=== PATIENT | female | born 1950 | race Caucasian/White ===

== ENCOUNTER 2017-08-21 20:28 | Observation (INO) | payer MEDICARE, OTHER ==
--- OUTSIDE RECORDS SUMMARY | 2017-08-21 20:31 | XMS | Clinical Summary ---
:1950 Author Organization [facility] Address [address] [place] [address] Phone Care Team Providers Name Role Phone , Primary Care Provider Unavailable Allergies Not on File Current Medications Not on file Active Problems Not on file Social History Tobacco Use Types Packs/Day Years Used Date Never Assessed Sex Assigned at Date Recorded Not on file Last Filed Vital Signs Not on file Plan of Treatment Not on file Results Not on filefrom Last 3 Months
[2017-08-21] MEDS ORDERED: Lidocaine Viscous Sol 2% 15 ml UD Cup ONE (20:50)
[2017-08-21] MEDS ORDERED: Milk Of Magnesia 30 ML UDCUP ONE (20:50)
[2017-08-21 21:08] LABS: ALT (SGPT) 14 U/L (8-55); AST (SGOT) 17 U/L (5-34); Alkaline Phosphatase 117 U/L (40-150); Anion Gap 16 mmol/L (10-20); BUN (Urea Nitrogen) 22 mg/dL (9.8-20.1); Bilirubin, Total 0.2 mg/dL (0.2-1.2); Calc. Creatinine Clearance 0 mL/min (70-130); Calcium 9.3 mg/dL (7.8-10.44); Carbon Dioxide 24 mmol/L (23-31); Chloride 100 mmol/L (98-107); Estimated GFR-MDRD 41; Globulin 2.9 g/dL (2.4-3.5); Protein, Total 7.1 g/dL (6.0-8.3)
[2017-08-21 21:10] LABS: Troponin I Less than 0.010 ng/mL (< 0.028)
[2017-08-21 21:15] LABS: Hematocrit 37.8 % (36.0-47.0); Mean Platelet Volume 7.6 fL (7.4-10.4); Neutrophil 35 % (42-75); Red Blood Cell (RBC) Count 4.01 mill/uL (4.20-5.40); White Blood Cell (WBC) Count 8.3 thou/uL (4.8-10.8)
--- NOTE | 2017-08-21 21:32 | RAD ---
PORTABLE AP CHEST X-RAY 08/21/17 HISTORY: Left upper chest pain. Began 20 minutes prior to arrival. COMPARISON: 04/04/17. There is an irregular nodular opacity which has developed at the right lung base. Linear scarring ri ght mid lung zone is seen, and there is a ill-defined nodular density also seen in this region. Ther e is linear scarring versus atelectasis at the left lung base similar to prior study. The cardiac silhouette and pulmonary vasculature are within normal limits. Metallic recording device again overlies the left lung base. IMPRESSION: Linear areas of scarring in the right mid lung zone and at the left lung base similar to prior study . There is a nodular density seen adjacent to the area of linear scarring as well as irregular nodul ar density seen at the right lung base. CT thorax is recommended for further evaluation. POS: [facility]
[2017-08-21] MEDS ORDERED: Nitroglycerin 0.4 MG TAB (25 Tab Bottle) ONE (21:54)
[2017-08-21] MEDS ORDERED: Ondansetron HCl/PF 4 MG/2 ML Vial IVP PRN (23:06)
[2017-08-21] MEDS ORDERED: Acetaminophen 325 MG TAB PO PRN (23:06)
[2017-08-21] MEDS ORDERED: HYDROcodone/Acetaminophen 5/325 mg Tablet PO PRN ×2 (23:06)
[2017-08-21] MEDS ORDERED: Ondansetron ODT 4 MG TAB SL PRN (23:06)
[2017-08-21 23:17] VITALS: BMI 22.2
[2017-08-22 00:01] LABS: Dilantin 15.5 ug/mL (10.0-20.0); Magnesium 2.1 mg/dL (1.6-2.6); Phosphorus 3.7 mg/dL (2.3-4.7)
[2017-08-22 00:27] LABS: Troponin I Less than 0.010 ng/mL (< 0.028)
[2017-08-22] MEDS ORDERED: Senokot 8.6 MG TAB PO PRN (01:22)
[2017-08-22] MEDS ORDERED: Nitroglycerin 0.4 MG TAB (25 Tab Bottle) PO PRN (01:22)
[2017-08-22] MEDS ORDERED: Ondansetron ODT 4 MG TAB PO PRN (01:22)
[2017-08-22] MEDS ORDERED: Eucerin (Mineral Oil/Petrolatum,White) 30 gm Jar TOP PRN (01:22)
[2017-08-22] MEDS ORDERED: Bisacodyl 10 MG SUPP PR PRN (01:22)
[2017-08-22] MEDS ORDERED: Cepastat Lozenges 1 LOZ PO PRN (01:22)
[2017-08-22] MEDS ORDERED: Diabetic Tussin 200 MG/10 ML UDCUP PO PRN (01:22)
[2017-08-22] MEDS ORDERED: Acetaminophen 325 MG TAB PO PRN (01:22)
[2017-08-22] MEDS ORDERED: Ondansetron HCl/PF 4 MG/2 ML Vial IVP PRN (01:22)
[2017-08-22] MEDS ORDERED: Levalbuterol HCl 0.63 MG/3 ML NEB NEB PRN (01:25)
[2017-08-22] MEDS ORDERED: PROVENTIL INHALER 6.7 G (200 INHALATIONS) INH PRN (01:25)
--- NOTE | 2017-08-22 02:01 | HP ---
DATE OF ADMISSION: 08/21/2017 Please note that the patient was seen and examined on 08/21/2017. PRIMARY CARE PHYSICIAN: Dr. Farrell PRIMARY RASPBERRY CHECKER: Dr. Roe Cain. CHIEF COMPLAINT: Chest discomfort. HISTORY OF PRESENT ILLNESS: 1. The patient is a 67-year-old female with coronary artery disease, frequent PVCs, status post loo p recorder. 2. Hypertension and TIAs, presented to the emergency room with chest discomfort that started earlie r today while she was working on her computer. It was left-sided without any radiation. It lasted for approximately 20 minutes or so. She felt nauseous; however, denies any vomiting. It was dull i n nature/pinching per patient report. It was 3/10 without any diaphoresis, syncope or dizziness. S he had several other episodes which were short lasting. She denies recent immobilization, travel, f ever, chills or cough. She has a history of cholecystectomy in the past. She is currently on omepr azole. However, has heartburn on and off. In the emergency room, her initial vital signs showed temperature 98, respiration of 19, pulse rate of 86, blood pressure 142/72 with O2 saturation 98% on room air. She received GI cocktail, aspirin and sublingual nitroglycerin in the emergency room. PAST MEDICAL HISTORY: 1. Frequent PVCs, status post loop recorder. 2. Left ear deafness. 3. Gastroesophageal reflux disease. 4. Peripheral neuropathy. 5. Transient ischemic attacks. 6. Meningioma. 7. Asthma. 8. Benign positional vertigo. 9. Cardiac catheterization in 2008 that showed mild coronary artery disease. PAST SURGICAL HISTORY: 1. Cardiac catheterization in 2008. 2. Loop recorder in 2015. 3. Hysterectomy. 4. Bladder surgery. 5. Thyroid surgery. 6. Bronchoscopy. 7. Bladder repair. ALLERGIES: Patient is allergic to KEFLEX and IODINE. CURRENT HOME MEDICATIONS: 1. Albuterol inhaler as needed, aspirin 81 mg at bedtime. 2. Aggrenox 1 capsule b.i.d. 3. Lipitor 10 mg at bedtime. 4. Vitamin B12. 5. Vitamin D3 daily. 6. Dilantin as directed. 7. Singular 10 mg at bedtime. 8. Synthroid 125 mcg daily. 9. Xopenex 0.63 mg every 8 hourly as needed. 10. Diovan 80 mg q.a.m. Please note that this was recently started; however, the patient has not b een taking due to blood pressure on the lower side. 11. Verapamil 100 mg b.i.d. SOCIAL HISTORY: Patient currently lives at home with her family. She denies any smoking, alcohol o r drug use. FAMILY HISTORY: Negative for premature coronary artery disease. Father had coronary artery disease and triple bypass surgery. Mother had a stroke. REVIEW OF SYSTEMS: The following complete review of systems was negative, unless otherwise mentione d in the HPI or below: Constitutional: Weight loss or gain, ability to conduct usual activities. Skin: Rash, itching. Eyes: Double vision, pain. ENT/Mouth: Nose bleeding, neck stiffness, pain, tenderness. Cardiovascular: Palpitations, dyspnea on exertion, orthopnea. Respiratory: Shortnes s of breath, wheezing, cough, hemoptysis, fever or night sweats. Gastrointestinal: Poor appetite, abdominal pain, heartburn, nausea, vomiting, constipation, or diarrhea. Genitourinary: Urgency, fr equency, dysuria, nocturia. Musculoskeletal: Pain, swelling. Neurologic/Psychiatric: Anxiety, de pression. Allergy/Immunologic: Skin rash, bleeding tendency. PHYSICAL EXAMINATION: VITAL SIGNS: As discussed above. GENERAL: A 67-year-old female in no apparent distress. Denies any chest discomfort at this time. HEENT: Head atraumatic, normocephalic, sclerae anicteric. Moist mucous membranes. No oral lesion. NECK: Supple, no JVD appreciated. No carotid bruit. LUNGS: Clear to auscultation bilaterally. No wheezing or rales. HEART: S1, S2 present. Regular rate and rhythm. No significant rubs or gallops appreciated. ABDOMEN: Soft, nontender, bowel sounds present. EXTREMITIES: No edema or calf tenderness. NEUROLOGIC: Grossly nonfocal, moves all four extremities. PSYCHIATRY: Alert, awake, oriented x3. SKIN: Warm and dry. LYMPH NODES: No palpable lymph nodes in the neck. PERIPHERAL VASCULAR: Radial pulses palpable bilaterally. MUSCULOSKELETAL: No joint swelling or tenderness. LABORATORY FINDINGS: 1. Creatinine was 1.3 with BUN 22, sodium of 135. 2. CBC showed WBC 8.3 with hemoglobin 13.3. 3. Dilantin level was normal. 4. Cardiac enzymes were normal. EKG by my review showed sinus rhythm with RSR prime pattern in V1. There were no significant ST-T wave changes. 5. Chest x-ray by my review was negative for edema. CT thorax was recommended due to irregular nod ular density at the right lung base. The right mid lung zone and the left lung base are similar to the prior study. Please note that patient recently had a CT scan of the chest at [facility]. IMPRESSION: 1. Chest discomfort, rule out acute coronary syndrome. Patient had her last cardiac catheterizatio n in 2008. We will continue her home medications. We will consult Cardiology in a.m. We will keep her n.p.o. past midnight. 2. History of transient ischemic attack. We will continue Aggrenox. 3. Seizure disorder. We will continue Dilantin. 4. Gastroesophageal reflux disease. We will continue omeprazole. 5. Hypothyroidism. We will continue levothyroxine. 6. 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 We will continue nebulizer elle tment as needed along with Singulair. 7. Chronic kidney disease stage III with slight worsening of renal function. Please note that galilea ent has not started Diovan yet due to blood pressure on the lower side. 8. History of transient ischemic attack. We will continue Aggrenox. 9. History of lung nodule. Patient was advised to follow up with the PCP. Patient recently had a CT scan done at [facility]. 10. History of frequent premature ventricular contractions, status post loop recorder. 11. Disposition probably in 24 hours based on Cardiology input. Plan of care was discussed with the patient. She stated understanding. CODE STATUS: FULL code. SURROGATE DECISION MAKER: The patient makes her own decisions with the help of her family.
[2017-08-22] MEDS ORDERED: HYDROcodone/Acetaminophen 5/325 mg Tablet PO SCH (03:30)
[2017-08-22 03:33] LABS: Anion Gap 11 mmol/L (10-20); BUN (Urea Nitrogen) 23 mg/dL (9.8-20.1); Calc. Creatinine Clearance 43 mL/min (70-130); Calcium 9.2 mg/dL (7.8-10.44); Carbon Dioxide 27 mmol/L (23-31); Chloride 102 mmol/L (98-107); Estimated GFR-MDRD 44
[2017-08-22 03:39] LABS: Troponin I Less than 0.010 ng/mL (< 0.028)
[2017-08-22 04:06] LABS: Bilirubin Negative (Negative); Blood, Urine Negative (Negative); Glucose, Urine (Dipstick) Negative (Negative); Ketone, Urine Negative (Negative); Nitrite Negative (Negative); Protein, Urine (Dipstick) Negative (Neg-Trace); Urobilinogen 0.2 mg/dL (0.2-1.0)
[2017-08-22 04:08] LABS: Bacteria/HPF None Seen HPF (None Seen); Hyaline Casts/LPF 0-3 HYALINE CAST LPF (0-3 Hyaline); RBC/HPF 0-3 HPF (0-3); Squamous Epithelial None Seen HPF (0-3); WBC/HPF None Seen HPF (0-3)
[2017-08-22] MEDS ORDERED: Levothyroxine Sodium 125 MCG TAB PO SCH (06:00)
[2017-08-22] MEDS ORDERED: VERAPAMIL HCL 100 MG PO SCH (09:00)
[2017-08-22] MEDS ORDERED: Aggrenox 200-25mg CAP PO SCH (09:00)
[2017-08-22] MEDS ORDERED: Ketorolac Tromethamine 30 MG/ML VIAL IVP SCH (09:15)
--- NOTE | 2017-08-22 13:53 | CON ---
DATE OF CONSULTATION: 08/22/2017 HISTORY OF PRESENT ILLNESS: Patient is a pleasant 67-year-old with a history of coronary artery disease, who presents with left-sided chest discomfort. The patient was seen in 2008 with chest pain.She underwent a cardiac catheterization and was found to have normal left ventricular systolic function with mild coronary artery disease. She had a 20% LAD lesion. The patient also has a history of TIA's. She has subsequently had an episode of syncope and has had placement of a loop recorder. The patient was in her usual state of health when she had been walking her dog, and had been pulling on a leash several hours. Subsequently, she developed left-sided chest discomfort. This would last for a second,and then return a few seconds later. This continued for several hours. She came to the emergency room for further evaluation. The patient denies having any present chest discomfort. PAST MEDICAL HISTORY: 1. Coronary artery disease. 2. Hypertension. 3. Dyslipidemia. 4. TIA. 5. Asthma. 6. Dyslipidemia. 7. History of meningioma. PAST SURGICAL HISTORY: Hysterectomy, bladder surgery, and thyroid surgery. ALLERGIES: KEFLEX and IODINE. CURRENT MEDICATIONS: See nursing list. SOCIAL HISTORY: Nonsmoker. FAMILY HISTORY: Positive family history of coronary artery disease. REVIEW OF SYSTEMS: Ten-point system noted both for dysuria, otherwise unremarkable. PHYSICAL EXAMINATION: GENERAL: Thin woman, in no acute distress. VITAL SIGNS: Blood pressure 121/77. NECK: No jugular venous distention, no carotid bruits. LUNGS: Clear to auscultation. HEART: Regular rate and rhythm, normal S1 and S2, no murmurs. ABDOMEN: Nondistended. EXTREMITIES: Showed no edema. SKIN: Warm and dry. NEUROLOGIC: Nonfocal. VASCULAR: Radial pulses are 2+. LABORATORY DATA AND IMAGING: Sodium 136, potassium 4.4, chloride 102, bicarbonate 27, BUN 23, creatinine 1.22, troponin less than 0.01. EKG revealed normal sinus rhythm, RSR' suggests right ventricular conduction delay. IMPRESSION AND PLAN: 1. Chest pain, atypical. 2. History of mild coronary artery disease. 3. History of transient ischemic attack. 4. Asthma. 5. Dyslipidemia. This patient presents with atypical chest pain. Her EKG showed no acute ischemic changes. We will proceed with stress testing to evaluate if there is any evidence of ischemia. We will follow this patient with you through her hospitalization. [facility]
--- NOTE | 2017-08-22 15:19 | PDOC.PN ---
- Subjective Encounter Start Date: 08/22/17 Encounter Start Time: 15:16 Ms. Bermudez is still having some pain in the left side of her chest . It is about 3/10 now. - Objective Resuscitation Status: Resuscitation Status FULL:Full Resuscitation MAR Reviewed: Yes Vital Signs & Weight: Vital Signs (12 hours) Temp Pulse Resp BP BP Pulse Ox 08/22/17 08:00 98.0 F 80 16 08/22/17 07:30 98.0 F 80 16 121/77 94 L 08/22/17 03:21 90 18 117/61 96 Weight Weight 138 lb 1 oz I&O: 08/21/17 08/22/17 08/23/17 06:59 06:59 06:59 Intake Total 480 Output Total 1150 Balance -670 Result Diagrams: 08/21/17 20:42 08/22/17 02:44 Phys Exam - Physical Examination HEENT: PERRLA Respiratory: no wheezing, no rales, no rhonchi, clear to auscultation bilateral Cardiovascular: RRR, no significant murmur Gastrointestinal: soft, non-tender, positive bowel sounds Musculoskeletal: no edema Dx/Plan (1) Chest pain Code(s): R07.9 - CHEST PAIN, UNSPECIFIED Status: Acute (2) Hypertension Code(s): I10 - ESSENTIAL (PRIMARY) HYPERTENSION Status: Acute - Plan * Chest pain- likely non-cardiac- suspect a muscle strain * HTN- blood pressure is controlled * Discussed with Cardiology- she is stable for discharge home..
--- NOTE | 2017-08-22 15:20 | NM ---
NUCLEAR MEDICINE CARDIAC MYOCARDIAL PERFUSION SPECT EJECTION FRACTION STUDY WALL MOTION CINE: DATE: 08/22/17. HISTORY: A 67-year-old female with chest pain. TECHNIQUE: Number of days: 1. Rest study: Tc99m sestamibi (Cardiolite) dose: 9.0 mCi. Exercise stress: treadmill. Stress study: Tc99m sestamibi (Cardiolite) dose: 33.0 mCi. FINDINGS: CARDIAC (MYOCARDIAL PERFUSION) SPECT Distribution of sestamibi is homogeneous throughout the left ventricle, with no fixed or reversible myocardial perfusion defects. EJECTION FRACTION STUDY EF = 78% WALL MOTION CINE The left ventricular wall motion is normal. There is normal systolic wall thickening. IMPRESSION: Normal. aarti[] POS: [facility]
[2017-08-22 15:23] VITALS: BP 140/75; TEMP 98.8
[2017-08-22] MEDS ORDERED: Montelukast Sodium 10 mg Tablet PO SCH (21:00)
[2017-08-22] MEDS ORDERED: Atorvastatin Calcium 10 MG TAB PO SCH (21:00)
--- NOTE | 2017-08-23 01:01 | DIS ---
PRIMARY CARE PHYSICIAN: Dr. Johnny Farrell. DATE OF ADMISSION: 08/22/2017 DATE OF DISCHARGE: 08/22/2017 DISCHARGE DISPOSITION: Home. PRIMARY DISCHARGE DIAGNOSES: 1. Chest pain, probable due to a musculoskeletal strain. 2. History of coronary artery disease. 3. Transient ischemic attack. 4. History of gastroesophageal reflux disease. DISCHARGE MEDICATIONS: There is no change in her home medications. She is to continue verapamil 10 0 mg twice daily, valsartan 80 mg daily, Dilantin 100 mg in the morning and 200 mg in the evening, t he 100 mg in the morning is alternated with 200 mg every other morning alternating with 100. Omepra zole 40 mg twice a day, Singulair 10 mg at bedtime, levothyroxine 125 mcg daily, Xopenex nebs q.8 ho urs as needed, vitamin B12 at 2500 mcg sublingual daily, vitamin D3 at 2000 units daily, Lipitor 10 mg at bedtime, Aggrenox 1 capsule twice a day, aspirin 81 mg daily, ProAir 2 puffs q.4 hours as need ed, and Tylenol 650 mg q.4 hours as needed for pain. PROCEDURES DONE DURING ADMISSION: The patient had a nuclear stress test, which was negative for any reversible ischemia. CODE STATUS: FULL CODE. ALLERGIES: CEPHALEXIN and IODINATED CONTRAST. HOSPITAL COURSE: Ms. Bermudez is a pleasant 67-year-old female, who was admitted to the hospital wi th complaints of chest pain. She was placed in observation and ruled out. Her painter assistant was con sulted. She had a negative stress test, and it is felt that the chest pain was likely as a result o f a muscle strain. The patient had been walking her dog when the pain started, and the dog had pull ed away from her and jerked her arm really hard. At the time of discharge, she was still having iker e chest pain, but it was about 3/10, and it was suggested that she take some Tylenol as needed and a lso to have close followup with Dr. Farrell in approximately 1-2 weeks.
== END 2017-08-22 15:51 | disposition home or self-care (01) ==
LOC: SCSER 20:28 → 2SW 21:55
PROVIDERS: ADMIT Internal Medicine; ATTEND Internal Medicine
DX: R07.9 Chest pain, unspecified (principal); I25.10 Atherosclerotic heart disease of native coronary artery without angina pectoris; K21.9 Gastro-esophageal reflux disease without esophagitis; I49.3 Ventricular premature depolarization; H91.92 Unspecified hearing loss, left ear; G62.9 Polyneuropathy, unspecified; H81.10 Benign paroxysmal vertigo, unspecified ear; E03.9 Hypothyroidism, unspecified; J45.30 Mild persistent asthma, uncomplicated; B44.81 Allergic bronchopulmonary aspergillosis; I12.9 Hypertensive chronic kidney disease with stage 1 through stage 4 chronic kidney disease, or unspecified chronic kidney disease; N18.3 Chronic kidney disease, stage 3 (moderate); Z79.82 Long term (current) use of aspirin; Z79.84 Long term (current) use of oral hypoglycemic drugs; Z79.899 Other long term (current) drug therapy; Z88.1 Allergy status to other antibiotic agents; Z91.041 Radiographic dye allergy status; Z95.818 Presence of other cardiac implants and grafts; Z85.89 Personal history of malignant neoplasm of other organs and systems; Z86.73 Personal history of transient ischemic attack (TIA), and cerebral infarction without residual deficits; Z82.3 Family history of stroke; Z82.49 Family history of ischemic heart disease and other diseases of the circulatory system
CPT/HCPCS: 71010; 78452; 80048; 80053; 80185; 81001; 82553; 83735; 84100; 84484 ×3; 85025; 93005; 93017; 94760; 96374; 99285; A9500; G0378; 36415; J1885

== ENCOUNTER 2017-12-04 13:34 | Outpatient (CLI) | payer MEDICARE ==
--- NOTE | 2017-12-04 14:51 | RAD ---
2 VIEWS CHEST: Date: 12/04/17 COMPARISON: 04/04/17. HISTORY: Shortness of breath. FINDINGS/IMPRESSION: On the prior examination, there was a small, wedge-shaped area of increased density in the costophren ic angle on the left which has improved. There is a loop recorder overlying the left chest. There is increased linear and interstitial density throughout both lungs, stable. There is a new, vague area of increased density in the right lung apex inferior to the right clavicle , nonspecific. This may represent interval development of infectious pneumonitis or may represent an opacity associated with a malignancy. Clinical correlation is essential. If there are no signs and symptoms to suggest that this represents inflammatory/infectious process, a CT examination is advised at this time. If there is concern for p neumonia, recommend course of treatment and short-term follow-up imaging to document resolution. ALCIDES Pierre made aware via phone by Dr. Montiel on 12/07/2017 at 4pm. POS: [facility]
== END 2017-12-04 13:35 | disposition home or self-care (01) ==
LOC: RAD 13:34
PROVIDERS: ATTEND Internal Medicine Pulmonary Disease
DX: R06.00 Dyspnea, unspecified (principal)
CPT/HCPCS: 71046

== ENCOUNTER 2018-01-04 12:33 | Outpatient (CLI) | payer MEDICARE ==
--- NOTE | 2018-01-04 13:55 | RAD ---
TWO VIEW CHEST: History Dyspnea. COMPARISON: 12/04/17. FINDINGS: The infiltrate into the right upper lung noted previously is again seen, although slightly less prono unced today. Some of this difference is due to exposure differences. Linear stranding and/or atelec tasis in the right mid lung again noted. Left Lung: There is some mild linear stranding in the left lung base which is also stable. Heart and mediastinu m unremarkable. IMPRESSION: Probably no significant change in the chest given the changes in exposure from the prior study. Righ t upper lobe opacity is again noted along with linear stranding in the right mid lung field. POS: [facility]
== END 2018-01-04 12:34 | disposition home or self-care (01) ==
LOC: RAD 12:33
PROVIDERS: ATTEND Internal Medicine Pulmonary Disease
DX: R06.00 Dyspnea, unspecified (principal); R91.8 Other nonspecific abnormal finding of lung field
CPT/HCPCS: 71046

== ENCOUNTER 2018-07-01 13:09 | Outpatient (CLI) | payer MEDICARE ==
--- NOTE | 2018-07-01 17:34 | RAD ---
CHEST TWO VIEWS: INDICATIONS: Dyspnea. COMPARISON: 01/04/2018 FINDINGS: There are linear densities bilaterally, grossly stable, which may relate to parenchymal scar. Implan table loop recorder overlies the left aspect of the cardiac silhouette. The lungs are mildly hyperin flated. Since the prior exam, there has been development of a focal region of interstitial opacification at t he right lung base, and a focal patchy opacity at the lateral left lung base. A prior right suprahil ar opacity has decreased in conspicuity. IMPRESSION: Bilateral lower lobe opacities, which have developed since the prior exam could relate to areas of pn eumonitis versus atelectasis. These are superimposed upon persistent areas of parenchymal scar bilat erally. Recommend imaging followup to confirm resolution. POS: [facility]
== END 2018-07-01 13:10 | disposition home or self-care (01) ==
LOC: RAD 13:09
PROVIDERS: ATTEND Internal Medicine Pulmonary Disease
DX: R06.00 Dyspnea, unspecified (principal); R91.8 Other nonspecific abnormal finding of lung field
CPT/HCPCS: 71046

== ENCOUNTER 2018-08-09 12:50 | Outpatient (CLI) | payer MEDICARE | END 2018-08-09 12:51 | disposition home or self-care (01) | LOC: BICMAMMO 12:50 | PROVIDERS: ATTEND Obstetrics & Gynecology | DX: Z12.31 Encounter for screening mammogram for malignant neoplasm of breast (principal); Z80.3 Family history of malignant neoplasm of breast | CPT/HCPCS: 77063; 77067 ==

== ENCOUNTER 2018-08-28 08:15 | Outpatient (CLI) | payer MEDICARE ==
--- NOTE | 2018-08-28 11:35 | ULT ---
RIGHT BREAST ULTRASOUND: Date: 08/28/18 HISTORY: Right breast tingling in the subareolar region. FINDINGS: Correlation with mammogram same date. Sonographic evaluation of the subareolar region of the right breast demonstrates a well circumscribed , nonshadowing, solid mass at the 12 o'clock position measuring 6.0 x 4.0 x 3.0 mm. IMPRESSION: BIRADS 4: Suspicious Abnormality - Biopsy Should Be Considered Ultrasound guided biopsy is recommended. Discussed in person with the patient at 0935 hours. POS: [facility]
== END 2018-08-28 08:16 | disposition home or self-care (01) ==
LOC: BICMAMMO 08:15
PROVIDERS: ATTEND Obstetrics & Gynecology
DX: R92.8 Other abnormal and inconclusive findings on diagnostic imaging of breast (principal); N64.4 Mastodynia; N63.10 Unspecified lump in the right breast, unspecified quadrant
CPT/HCPCS: 76642; 77065; G0279

== ENCOUNTER → 2018-09-02 | Day surgery (SDC) | payer MEDICARE ==
--- NOTE | 2018-09-02 17:27 | ULT ---
ULTRASOUND GUIDED BIOPSY RIGHT BREAST MASS: HISTORY: Right breast mass at the 12 o'clock position. Biopsy recommended. TECHNIQUE: Ultrasound guided biopsy marker and clip placement, right breast. After informed consent was obtained, The patient was placed on the sonography table in the supine pos ition. The previously seen small hypoechoic mass at the 12 o'clock position of the right breast was localized. The area was marked and then meticulously prepped and draped in the usual sterile fashion . The skin and subcutaneous tissues were infiltrated with buffered 1% Lidocaine for local anesthesia. A small skin incision was made. Utilizing concurrent real-time ultrasound guidance, a total of four 14-gauge core needle biopsy specimens were obtained through the small mass. A biopsy marker clip was then deployed just adjacent to the right breast mass. Hemostasis was achieved for approximately 10 minutes, and a dry, sterile dressing was placed. Two mammographic views of the right breast were the n performed, demonstrating a biopsy marker clip within the right breast, at the site of the biopsy, n ear the 12 o'clock position, right breast. The patient tolerated the procedure well and without immediate complication. The patient was [facility] in stable condition. Pathology is currently pending. IMPRESSION: 1. Technically successful ultrasound guided biopsy of right breast mass. 2. Technically successful biopsy marker clip placement at site of biopsy with the clip positioned ju st adjacent to the right breast mass. POS: [facility]
== END ==
LOC: BICULT 12:44
PROVIDERS: ATTEND Obstetrics & Gynecology
PROC: 0HBT3ZX Excision of Right Breast, Percutaneous Approach, Diagnostic (ICD-10-PCS; principal; 2018-09-02)
DX: D24.1 Benign neoplasm of right breast (principal)
CPT/HCPCS: 19083; 88305

== ENCOUNTER 2018-10-13 09:18 | Emergency (ER) | payer MEDICARE | END 2018-10-13 09:55 | disposition home or self-care (01) | LOC: SCSER 09:18 | DX: T78.40XA Allergy, unspecified, initial encounter (principal); R22.1 Localized swelling, mass and lump, neck; I49.3 Ventricular premature depolarization; J45.909 Unspecified asthma, uncomplicated; G62.9 Polyneuropathy, unspecified; K21.9 Gastro-esophageal reflux disease without esophagitis | CPT/HCPCS: 99283 ==

== ENCOUNTER 2018-11-28 11:02 | Outpatient (CLI) | payer MEDICARE ==
--- NOTE | 2018-11-28 13:17 | RAD ---
TWO VIEW CHEST: COMPARISON: 07/01/2018. INDICATION: Dyspnea. FINDINGS: Interval improvement of prior bibasilar densities with mild residual densities remaining which favor residual scar. There is persistent curvilinear density at the right hilum which may also relate to s car. Implantable loop recorder overlies the left heart border. Cardiac silhouette is stable in size . No effusion or pneumothorax. IMPRESSION: Residual linear densities of the lung bases, as well as within the perihilar region favoring areas of scar. POS: [facility]
== END 2018-11-28 11:03 | disposition home or self-care (01) ==
LOC: RAD 11:02
PROVIDERS: ATTEND Internal Medicine Pulmonary Disease
DX: R06.00 Dyspnea, unspecified (principal); J98.4 Other disorders of lung
CPT/HCPCS: 71046

== ENCOUNTER 2018-12-09 13:59 | Outpatient (CLI) | payer MEDICARE ==
--- NOTE | 2018-12-09 15:18 | RAD ---
RIGHT RIB SERIES 3 VIEWS: INDICATION: Palpable lump of right chest wall. FINDINGS: The imaged lung parenchyma demonstrates interstitial prominence. There is a curvilinear density eman ating from the right hilum which may relate to scar and/or subsegmental atelectasis. Implantable loo p recorder device is seen overlying the cardiac silhouette. There is no obvious acute pathology of the right ribs. Degenerative changes are seen within the spin e. IMPRESSION: No acute osseous abnormality of the right ribs. If there is persistent concern for a palpable abnorm ality of the chest wall, consider localized soft tissue ultrasound as necessary to further interrogat e. POS: [facility]
== END 2018-12-09 14:00 | disposition home or self-care (01) ==
LOC: BICRAD 13:59
PROVIDERS: ATTEND Internal Medicine Pulmonary Disease
DX: R07.9 Chest pain, unspecified (principal); R22.2 Localized swelling, mass and lump, trunk

== ENCOUNTER 2018-12-10 00:55 | Emergency (ER) | payer MEDICARE ==
[2018-12-10] MEDS ORDERED: Ibuprofen 200 MG TAB ONE (01:17)
[2018-12-10] MEDS ORDERED: Dexamethasone 4 MG TAB ONE (01:17)
[2018-12-10] MEDS ORDERED: HYDROcodone/Acetaminophen 5/325 mg Tablet ONE (01:17)
[2018-12-10] MEDS ORDERED: Cyclobenzaprine 10 MG TAB ONE (01:17)
== END 2018-12-10 01:33 | disposition home or self-care (01) ==
LOC: SCSER 00:55
DX: S43.401A Unspecified sprain of right shoulder joint, initial encounter (principal); K21.9 Gastro-esophageal reflux disease without esophagitis; Z86.73 Personal history of transient ischemic attack (TIA), and cerebral infarction without residual deficits; J45.909 Unspecified asthma, uncomplicated; Z79.899 Other long term (current) drug therapy; Z79.82 Long term (current) use of aspirin; Z79.51 Long term (current) use of inhaled steroids; X50.0XXA Overexertion from strenuous movement or load, initial encounter
CPT/HCPCS: 99283; J8540

== ENCOUNTER 2018-12-16 15:29 | Emergency (ER) | payer MEDICARE ==
--- NOTE | 2018-12-16 17:03 | RAD ---
3 VIEWS LEFT WRIST: Date: 12/16/18 HISTORY: Pain and swelling. Fall. FINDINGS: There is widening of the scapholunate joint space. Correlate for ligamentous injury. There is irregul arity involving the scaphoid bone. The possibility of a scaphoid bone fracture cannot be excluded. There are degenerative changes of the first metacarpophalangeal joint space. There is evidence of distal radius and ulnar soft tissue swelling. On the lateral projection, the pos sibility of a posterior nondisplaced distal radius fracture cannot be excluded. IMPRESSION: 1. Possible fracture involving the distal radius and scaphoid bone. 2. Widening of the scapholunate joint space, worrisome for ligamentous injury. Further interrogation with MRI is recommended. POS: [facility]
== END 2018-12-16 16:41 | disposition home or self-care (01) ==
LOC: SCSER 15:29
DX: M25.532 Pain in left wrist (principal); I10 Essential (primary) hypertension; J45.909 Unspecified asthma, uncomplicated; E03.9 Hypothyroidism, unspecified; Z79.899 Other long term (current) drug therapy; Z79.82 Long term (current) use of aspirin; Z79.51 Long term (current) use of inhaled steroids; W01.0XXA Fall on same level from slipping, tripping and stumbling without subsequent striking against object, initial encounter
CPT/HCPCS: 29125

== ENCOUNTER 2019-03-19 15:10 | Outpatient (CLI) | payer MEDICARE ==
--- NOTE | 2019-03-19 15:32 | RAD ---
CHEST TWO VIEWS: HISTORY: Dyspnea. COMPARISON: 11/27/2018 FINDINGS: Scarring is similar. No pneumothorax. The lungs are hyperinflated. Loop recording device projects over the left hemithorax. No acute osseous abnormality. IMPRESSION: Lung hyperinflation with scattered scarring. No significant change. POS: [facility]
== END 2019-03-19 15:11 | disposition home or self-care (01) ==
LOC: RAD 15:10
PROVIDERS: ATTEND Internal Medicine Pulmonary Disease
DX: R06.00 Dyspnea, unspecified (principal); R91.8 Other nonspecific abnormal finding of lung field; J98.4 Other disorders of lung
CPT/HCPCS: 71046

== ENCOUNTER 2019-05-01 13:04 | Outpatient (CLI) | payer MEDICARE ==
--- NOTE | 2019-05-01 13:49 | ULT ---
SOFT TISSUE ULTRASOUND OF CHEST WALL: CLINICAL HISTORY: Palpable, painful lump of right chest wall. FINDINGS: Localized soft tissue imaging with sonography performed of the ventral right chest wall at site of palpable concern. There is no focal soft tissue abnormality. An underlying rib with shadowing is present. IMPRESSION: No focal soft tissue abnormality to account for area of palpable concern. Correlate clini denis. If there is persistent concern, consider CT of chest, with contrast, for further evaluation. Transcribed Date/Time: 05/01/2019 1:52 PM
== END 2019-05-01 13:05 | disposition home or self-care (01) ==
LOC: BICULT 13:04
PROVIDERS: ATTEND Internal Medicine Pulmonary Disease
DX: R22.2 Localized swelling, mass and lump, trunk (principal)

== ENCOUNTER 2019-05-21 08:23 | Outpatient (CLI) | payer MEDICARE ==
--- NOTE | 2019-05-21 09:53 | CT ---
CT CHEST WITH CONTRAST CLINICAL INDICATION: Right-sided chest lung/mass for past year. Now more pronounced. Associated right shoulder blade pain. COMPARISON: 06/21/2017 FINDINGS: Aorta: The aorta is normal in caliber without evidence of an aortic dissection. Minimal vascular calc ifications are seen. Lungs: Linear areas of scarring are again seen in the upper lobes bilaterally as well as involving ea ch lower lobe. There is an area of minimal bronchiectasis seen within the lateral aspect right lower lobe with associated minimal reticulonodular densities. This may be related to infectious or in flammatory process. There is an irregular nodular density seen at the left lung base. This is overall nonspecific finding. This could relate to focal area of atelectasis or scarring, but follow-u p is recommended. No consolidation or pleural fluid is seen. Mediastinum: There is no evidence of lymphadenopathy. Thyroid gland: There are stable small subcentimeter hypodense nodules within the right lobe of the th yroid gland. The left lobe of thyroid gland is not seen and may be surgically absent. Osseous structures: Mild degenerative changes are again seen in the spine. Chest wall: A loop recorder device is again seen within the region of the medial aspect left breast s oft tissues. There is no mass or fluid collection seen in the soft tissues to correspond to site of patient's palpable abnormality in the ventral aspect of the chest which was marked on the skin surfac e. Chest wall in this region is overall symmetric to the contralateral left side. Upper abdomen: Small hiatal hernia is present. Remainder the upper abdomen has a normal CT appearance . IMPRESSION: 1. Slightly irregular nodular density left lung base. Patient does have scattered areas of scarring a nd chronic lung changes, and this could be related to focal area of scarring or atelectasis. Follow-up evaluation is recommended. 2. Stable areas of scarring within the lungs bilaterally with area of focal mild bronchiectasis and r eticulonodular densities lateral aspect right lower lobe which could be related to infectious or inflammatory process. 3. Small hiatal hernia. 4. No mass, fluid collection, or other abnormality is seen to correspond to region of the patient's c linically palpable abnormality right chest.
== END 2019-05-21 08:24 | disposition home or self-care (01) ==
LOC: SCSCT 08:23
PROVIDERS: ATTEND Internal Medicine Pulmonary Disease
DX: R91.8 Other nonspecific abnormal finding of lung field (principal); J98.11 Atelectasis; K44.9 Diaphragmatic hernia without obstruction or gangrene
CPT/HCPCS: 71260

== ENCOUNTER 2019-05-25 18:56 | Emergency (ER) | payer MEDICARE | END 2019-05-25 19:24 | disposition home or self-care (01) | LOC: SCSER 18:56 | DX: R59.0 Localized enlarged lymph nodes (principal); Z86.73 Personal history of transient ischemic attack (TIA), and cerebral infarction without residual deficits; E03.9 Hypothyroidism, unspecified; I10 Essential (primary) hypertension; Z79.899 Other long term (current) drug therapy; Z79.82 Long term (current) use of aspirin | CPT/HCPCS: 99283 ==

== ENCOUNTER 2019-06-05 07:28 | Outpatient (CLI) | payer MEDICARE ==
[2019-06-05] MEDS ORDERED: Iopamidol 370 76% 100 ML VIAL ONE (09:00)
--- NOTE | 2019-06-05 13:18 | CT ---
CT NECK SOFT TISSUES, WITH CONTRAST: CLINICAL INDICATION:Palpable mass of the left neck COMPARISON: No prior comparison imaging FINDINGS: Aerodigestive tract:Free from significant mass effect. Parotid gland: No intrinsic mass, or inflammation of the visualized aspects. Submandibular glands:No intrinsic mass, or inflammation. Soft tissue mass/adenopathy:Rim hyperdense mass with internal decreased density projects at the left ventral neck, just anterior to the left cricoid cartilage, 11 mm in diameter. Thyroid gland:Absence of left thyroid lobe. Numerous hypodensities of the right thyroid lobe Incidental findings:Bilateral scarring of the upper lung zones added density at the partially imaged mediastinum is present, predominance of which is related to motion artifact, and this region is incompletely evaluated. IMPRESSION: Small rim hyperdense mass of the left anterior neck. This could relate to necrotic adenopathy, ectopi c thyroid tissue, or small necrotic mass. Absence of left thyroid lobe. Numerous hypodense nodules of right thyroid lobe. Consider thyroid ultr asound for further characterization. Transcribed Date/Time: 06/05/2019 1:39 PM
== END 2019-06-05 07:29 | disposition home or self-care (01) ==
LOC: SCSCT 07:28
PROVIDERS: ATTEND Otolaryngology Plastic Surgery within the Head & Neck
DX: R22.1 Localized swelling, mass and lump, neck (principal); E04.1 Nontoxic single thyroid nodule
CPT/HCPCS: 70491; Q9967

== ENCOUNTER 2019-08-14 09:55 | Outpatient (CLI) | payer MEDICARE ==
--- NOTE | 2019-08-14 10:28 | MMO ---
Bilateral MAMMO Bilat Screen [facility]. CLINICAL HISTORY: Patient is 69 years old and is seen for screening. The patient has the following family history of breast cancer: sister, at age 52. The patient has no personal history of cancer. The patient has a history of right Ultrasound Guided Core Biopsy in August, - benign. VIEWS: The views performed were: bilateral craniocaudal with tomosynthesis and bilateral mediolateral oblique with tomosynthesis. FILMS COMPARED: The present examination has been compared to prior imaging studies performed at [facility] on 01/29/2015, 06/22/2017, 08/09/2018 and 08/28/2018. This study has been interpreted with the assistance of computer-aided detection. MAMMOGRAM FINDINGS: The breasts are heterogeneously dense, which could obscure a lesion on mammography. There are stable benign appearing calcifications seen in the right breast. A biopsy clip is seen in the right breast. Implanted loop recorder device left breast, limiting evaluation. There are no suspicious masses, suspicious calcifications, or new areas of architectural distortion. IMPRESSION: THERE IS NO MAMMOGRAPHIC EVIDENCE OF MALIGNANCY. A ROUTINE FOLLOW-UP MAMMOGRAM IN 1 YEAR IS RECOMMENDED. THE RESULTS OF THIS EXAM WERE SENT TO THE PATIENT. ACR BI-RADS Category 2 - Benign finding MAMMOGRAPHY NOTE: 1. A negative mammogram report should not delay a biopsy if a dominant of clinically suspicious mass is present. 2. Approximately 10% to 15% of breast cancers are not detected by mammography. 3. Adenosis and dense breasts may obscure an underlying neoplasm. Reported by: RIKY CLINE MD Electonically Signed: [id number]
== END 2019-08-14 09:56 | disposition home or self-care (01) ==
LOC: BICMAMMO 09:55
PROVIDERS: ATTEND Obstetrics & Gynecology
DX: Z12.31 Encounter for screening mammogram for malignant neoplasm of breast (principal); Z80.3 Family history of malignant neoplasm of breast
CPT/HCPCS: 77063; 77067

== ENCOUNTER 2019-09-29 12:53 | Outpatient (CLI) | payer MEDICARE ==
--- NOTE | 2019-09-29 13:13 | RAD ---
EXAM: Two views chest PROVIDED CLINICAL HISTORY: Dyspnea COMPARISON: 03/19/2019 FINDINGS: Loop recording device again overlies the left lung base. The cardiac silhouette is mildly enlarged. T he pulmonary vasculature is within normal limits. Linear scarring is again seen in the right middle lung zone. Linear densities are also seen at the left lung base similar to prior study and likely rel ated to mild scarring as well. There is suggestion of a nodular density at the lateral right lung base. This could potentially represent nipple shadow, but this was not present on prior exam. No cons olidation or pleural fluid is identified. No other interval change. IMPRESSION: 1. Suggestion of nodular density at the lateral right lung base. This could be related to nipple shad ow and superimposition of structures, but follow-up chest x-ray with nipple markers in place is recommended for further evaluation. 2. Stable linear areas of scarring within the lungs bilaterally.
== END 2019-09-29 12:54 | disposition home or self-care (01) ==
LOC: RAD 12:53
PROVIDERS: ATTEND Internal Medicine Pulmonary Disease
DX: R06.00 Dyspnea, unspecified (principal); J98.4 Other disorders of lung
CPT/HCPCS: 71046

== ENCOUNTER 2019-12-16 11:13 | Outpatient (CLI) | payer MEDICARE ==
--- NOTE | 2019-12-16 12:03 | RAD ---
EXAM: Two views chest PROVIDED CLINICAL HISTORY: Dyspnea COMPARISON: 09/29/2019 FINDINGS: Loop recorder device again overlies the left lung base. Cardiac silhouette is stable in size. Pulmon edgar vasculature is within normal limits. Linear area of scarring is again seen in the right midlung zone and overlying the right hilar region. Stable linear densities are seen at the left lung base als o likely attributable to scarring. No new area of consolidation or pleural fluid is identified. There does appear to be linear scarring in the left upper lung zone as well. No other interval change compared to prior study IMPRESSION: 1. Stable chest without evidence of an acute cardiopulmonary process. 2. Suggested nodular density lateral right lung base on prior exam is not seen on the current study. 3. Mild chronic lung changes similar to prior study..
== END 2019-12-16 11:14 | disposition home or self-care (01) ==
LOC: RAD 11:13
PROVIDERS: ATTEND Internal Medicine Pulmonary Disease
DX: R06.00 Dyspnea, unspecified (principal)
CPT/HCPCS: 36415; 71046; 80048; 80061; 80076; 80185; 82306; 82607; 82728; 83036; 83540; 83550; 84439; 84443; 85025

== ENCOUNTER 2021-03-16 11:30 | Outpatient (CLI) | payer MEDICARE | END 2021-03-16 11:31 | disposition home or self-care (01) | LOC: BICMAMMO 11:30 | PROVIDERS: ATTEND Internal Medicine | DX: Z12.31 Encounter for screening mammogram for malignant neoplasm of breast (principal); Z80.3 Family history of malignant neoplasm of breast; Z91.89 Other specified personal risk factors, not elsewhere classified | CPT/HCPCS: 77063; 77067 ==

== ENCOUNTER 2021-07-11 11:25 | Outpatient (CLI) | payer MEDICARE ==
[2021-07-12 07:59] LABS: SARS-CoV-2 PCR by NAA Not Detected (NotDetected)
== END 2021-07-11 11:26 | disposition home or self-care (01) ==
LOC: LABBT 11:25
PROVIDERS: ATTEND Anesthesiology Pain Medicine
DX: Z01.812 Encounter for preprocedural laboratory examination (principal); Z20.822 Contact with and (suspected) exposure to COVID-19
CPT/HCPCS: U0003; U0005

== ENCOUNTER 2021-07-15 08:43 | Day surgery (SDC) | payer MEDICARE ==
[2021-07-14 12:07] VITALS: BMI 24.3
[2021-07-15] MEDS ORDERED: Phenylephrine 10 MG/ML VIAL ONE (09:09)
[2021-07-15] MEDS ORDERED: Propofol 500 MG/50 ML VIAL ONE (09:09)
[2021-07-15] MEDS ORDERED: Lidocaine 1% PF 5 ML VIAL ONE (10:00)
[2021-07-15] MEDS ORDERED: Ondansetron PF 4 MG/2 ML Vial ONE (10:00)
== END 2021-07-15 12:10 | disposition home or self-care (01) ==
LOC: SDC/OP 08:43
PROVIDERS: ATTEND Anesthesiology Pain Medicine
DX: M48.062 Spinal stenosis, lumbar region with neurogenic claudication (principal); M54.16 Radiculopathy, lumbar region; G60.9 Hereditary and idiopathic neuropathy, unspecified; Z79.82 Long term (current) use of aspirin; Z79.899 Other long term (current) drug therapy; Z88.1 Allergy status to other antibiotic agents; Z91.040 Latex allergy status; Z91.041 Radiographic dye allergy status
CPT/HCPCS: 72148; J2370; J2405; J2704

== ENCOUNTER 2022-01-11 19:30 | Outpatient (CLI) | payer MEDICARE | END 2022-01-11 19:31 | disposition home or self-care (01) | LOC: SLEEPLAB 19:30 | PROVIDERS: ATTEND Internal Medicine | DX: G47.33 Obstructive sleep apnea (adult) (pediatric) (principal); R06.83 Snoring; I10 Essential (primary) hypertension; F41.9 Anxiety disorder, unspecified; E78.00 Pure hypercholesterolemia, unspecified; K21.9 Gastro-esophageal reflux disease without esophagitis; G47.30 Sleep apnea, unspecified | CPT/HCPCS: 95810 ==

== ENCOUNTER 2022-01-17 11:53 | Outpatient (CLI) | payer MEDICARE | END 2022-01-17 11:54 | disposition home or self-care (01) | LOC: RAD 11:53 | PROVIDERS: ATTEND Internal Medicine Critical Care Medicine | DX: R06.00 Dyspnea, unspecified (principal) | CPT/HCPCS: 71046 ==

== ENCOUNTER 2022-03-28 10:22 | Outpatient (CLI) | payer MEDICARE ==
[2022-03-28 22:58] LABS: SARS-CoV-2 PCR by NAA Not Detected (NotDetected)
== END 2022-03-28 10:23 | disposition home or self-care (01) ==
LOC: LABBT 10:22
PROVIDERS: ATTEND Internal Medicine
DX: Z20.822 Contact with and (suspected) exposure to COVID-19 (principal)
CPT/HCPCS: U0003; U0005

== ENCOUNTER 2022-03-31 09:58 | Day surgery (SDC) | payer MEDICARE ==
[2022-03-29 10:43] VITALS: BMI 21.6
[2022-03-31] MEDS ORDERED: fentaNYL Citrate/PF 100 MCG/2 ML SYRINGE ONE (11:36)
[2022-03-31] MEDS ORDERED: Midazolam HCl 2 mg/2 ml Vial ONE (11:36)
[2022-03-31] MEDS ORDERED: Famotidine/PF 20 mg/2ml Vial ONE (11:37)
[2022-03-31] MEDS ORDERED: Ondansetron PF 4 MG/2 ML Vial ONE (12:30)
== END 2022-03-31 13:56 | disposition home or self-care (01) ==
LOC: MRI 09:58
PROVIDERS: ATTEND Physical Medicine & Rehabilitation
DX: M53.3 Sacrococcygeal disorders, not elsewhere classified (principal); M51.37 Other intervertebral disc degeneration, lumbosacral region; G71.19 Other specified myotonic disorders; R26.9 Unspecified abnormalities of gait and mobility; M48.02 Spinal stenosis, cervical region; M79.10 Myalgia, unspecified site; M21.372 Foot drop, left foot; I10 Essential (primary) hypertension; G47.33 Obstructive sleep apnea (adult) (pediatric); J45.909 Unspecified asthma, uncomplicated; G62.9 Polyneuropathy, unspecified; Z86.73 Personal history of transient ischemic attack (TIA), and cerebral infarction without residual deficits; Z79.82 Long term (current) use of aspirin; Z79.890 Hormone replacement therapy; Z79.899 Other long term (current) drug therapy; Z88.1 Allergy status to other antibiotic agents; Z91.040 Latex allergy status; Z91.041 Radiographic dye allergy status
CPT/HCPCS: 72195; J2250; J2405; S0028

== ENCOUNTER 2022-05-02 10:54 | Outpatient (CLI) | payer MEDICARE | END 2022-05-02 10:55 | disposition home or self-care (01) | LOC: SCSRAD 10:54 | PROVIDERS: ATTEND Anesthesiology Pain Medicine | DX: M43.17 Spondylolisthesis, lumbosacral region (principal); M47.816 Spondylosis without myelopathy or radiculopathy, lumbar region | CPT/HCPCS: 72110 ==

== ENCOUNTER 2022-06-01 08:09 | Outpatient (CLI) | payer MEDICARE | END 2022-06-01 08:10 | disposition home or self-care (01) | LOC: BICMAMMO 08:09 | PROVIDERS: ATTEND Internal Medicine | DX: N64.4 Mastodynia (principal) | CPT/HCPCS: 77066; G0279 ==

== ENCOUNTER 2022-12-06 09:59 | Outpatient (CLI) | payer MEDICARE | END 2022-12-06 10:00 | disposition home or self-care (01) | LOC: SCSRAD 09:59 | PROVIDERS: ATTEND Internal Medicine | DX: R05.9 Cough, unspecified (principal); J98.4 Other disorders of lung | CPT/HCPCS: 71046 ==

== ENCOUNTER 2023-01-16 14:04 | Outpatient (CLI) | payer MEDICARE | END 2023-01-16 14:05 | disposition home or self-care (01) | LOC: SCSRAD 14:04 | PROVIDERS: ATTEND Internal Medicine Critical Care Medicine | DX: R06.00 Dyspnea, unspecified (principal); J98.4 Other disorders of lung | CPT/HCPCS: 71046 ==

== ENCOUNTER 2023-02-27 09:08 | Outpatient (CLI) | payer MEDICARE | END 2023-02-27 09:09 | disposition home or self-care (01) | LOC: RAD 09:08 | PROVIDERS: ATTEND Internal Medicine Critical Care Medicine | DX: R06.00 Dyspnea, unspecified (principal); R91.8 Other nonspecific abnormal finding of lung field | CPT/HCPCS: 71046 ==

== ENCOUNTER 2023-06-25 09:22 | Outpatient (CLI) | payer MEDICARE | END 2023-06-25 09:23 | disposition home or self-care (01) | LOC: SCSRAD 09:22 | PROVIDERS: ATTEND Internal Medicine | DX: M54.2 Cervicalgia (principal); M47.812 Spondylosis without myelopathy or radiculopathy, cervical region; M50.321 Other cervical disc degeneration at C4-C5 level; M50.322 Other cervical disc degeneration at C5-C6 level; M50.323 Other cervical disc degeneration at C6-C7 level | CPT/HCPCS: 72040 ==

== ENCOUNTER 2023-07-02 15:41 | Outpatient (CLI) | payer MEDICARE | END 2023-07-02 15:42 | disposition home or self-care (01) | LOC: RAD 15:41 | PROVIDERS: ATTEND Internal Medicine Critical Care Medicine | DX: R06.00 Dyspnea, unspecified (principal); J98.11 Atelectasis; J98.4 Other disorders of lung | CPT/HCPCS: 71046 ==

== ENCOUNTER 2023-10-05 14:56 | Outpatient (CLI) | payer MEDICARE | END 2023-10-05 14:57 | disposition home or self-care (01) | LOC: SCSRAD 14:56 | PROVIDERS: ATTEND Internal Medicine | DX: R05.9 Cough, unspecified (principal); R91.8 Other nonspecific abnormal finding of lung field; J98.4 Other disorders of lung; Z95.818 Presence of other cardiac implants and grafts | CPT/HCPCS: 71046 ==

== ENCOUNTER 2023-12-14 09:46 | Outpatient (CLI) | payer MEDICARE | END 2023-12-14 09:47 | disposition home or self-care (01) | LOC: BICMAMMO 09:46 | PROVIDERS: ATTEND Internal Medicine | DX: Z12.31 Encounter for screening mammogram for malignant neoplasm of breast (principal); Z80.3 Family history of malignant neoplasm of breast | CPT/HCPCS: 77063; 77067 ==